=== PATIENT | female | born 2005 | race Caucasian/White ===

== ENCOUNTER 2023-03-15 15:33 | Emergency (ER) | payer OTHER ==
[~2023-03-15] VITALS: Ht 154.9 cm; Wt 50.7 kg
[2023-03-15 15:35] VITALS: O2SAT 100
[2023-03-15] MEDS ORDERED: ONDANSETRON 4MG ORAL DISINTEGRATING TAB PO ONE (15:45)
[2023-03-15] MEDS ORDERED: ONDA4TAB6 PO (16:21)
[2023-03-15 17:33] LABS: APPEARANCE, URINE HAZY (CLEAR); BACTERIA, URINE AUTO 3+ (NEGATIVE); BILIRUBIN, URINE AUTO NEGATIVE (NEGATIVE); BLOOD, URINE BLOOD NEGATIVE (NEGATIVE); COLOR, URINE AMBER (YELLOW); GLUCOSE, URINE (UA) AUTO NEGATIVE (NEGATIVE); KETONE, URINE AUTO 2+ mg/dL (NEGATIVE); LEUKOCYTE ESTERASE, URINE AUTO 2+ (NEGATIVE); MUCUS, URINE LARGE (NEGATIVE); NITRITE, URINE AUTO POSITIVE (NEGATIVE); PROTEIN, URINE AUTO 1+ mg/dL (NEGATIVE); RBC, URINE AUTO 0 /HPF (0-3); SPECIFIC GRAVITY URINE AUTO 1.029 (1.002-1.035); SQUAMOUS EPITHELIAL CELL UR AU 12 /HPF (0-6); WBC, URINE AUTO 65 /HPF (0-3)
[2023-03-15] MEDS ORDERED: NITR1CAP11 PO (17:34)
[2023-03-15 18:02] VITALS: BP 105/70; TEMP 98.1
== END 2023-03-15 18:03 | disposition home or self-care (01) ==
LOC: M ED 15:33
DX: O21.9 Vomiting of pregnancy, unspecified (principal); O23.91 Unspecified genitourinary tract infection in pregnancy, first trimester; Z3A.01 Less than 8 weeks gestation of pregnancy

== ENCOUNTER → 2023-09-03 | Outpatient (CLI) | payer OTHER ==
[~2023-09-03] MED LIST: NITR100C3 PO; ONDA-282 PO
== END ==
LOC: M PLALAB 15:45
PROVIDERS: ATTEND Advanced Practice Midwife
DX: Z34.83 Encounter for supervision of other normal pregnancy, third trimester (principal)

== ENCOUNTER → 2023-10-09 | Outpatient (REF) | payer OTHER | LOC: M PLALAB 08:27 | PROVIDERS: ATTEND Obstetrics & Gynecology | DX: Z36.85 Encounter for antenatal screening for Streptococcus B (principal); Z3A.36 36 weeks gestation of pregnancy ==

== ENCOUNTER 2023-11-12 08:08 | Inpatient (IN) | payer OTHER ==
[2023-11-12] VITALS (37 sets, daily range): BP systolic 88–187; BP diastolic 52–98; O2SAT 99
[~2023-11-12] VITALS: Ht 149.9 cm; Wt 79.5 kg
[2023-11-12] MEDS ORDERED: IRON27TA2 PO (08:21)
[2023-11-12] MEDS ORDERED: PNV1TABL16 PO (08:21)
[2023-11-12] MEDS ORDERED: HOME MED LIST COMPLETE! XX SCH (08:25)
[2023-11-12] MEDS ORDERED: OXYTOCIN DRIP 30 UNITS in IV 1 EA IV PRN (09:00)
[2023-11-12] MEDS ORDERED: TRANEXAMIC ACID INJection 1,000 MG in NS 100 ML IV PRN (09:00)
[2023-11-12] MEDS ORDERED: CARBOPROST TROMETHAMINE 250 MCG/ML AMP IM PRN (09:00)
[2023-11-12] MEDS ORDERED: OXYTOCIN INJ 10UNITS/ML 1ML VIAL IM PRN (09:00)
[2023-11-12 09:11] LABS: HEMATOCRIT 37.8 % (36.0-47.0); MEAN CORPUSCULAR HEMOGLOBIN 31.6 pg (27.0-33.0); MEAN CORPUSCULAR HGB CONC 34.4 g/dl (32.0-36.5); MEAN CORPUSCULAR VOLUME 91.7 fl (80.0-96.0); PLATELET COUNT, AUTOMATED 147 10^3/uL (150-450); RED BLOOD COUNT 4.12 10^6/uL (4.00-5.40); WHITE BLOOD COUNT 10.2 10^3/uL (4.0-10.0)
[2023-11-12 10:14] LABS: HEPATITIS C VIRUS ABY INDEX < 0.02 INDEX (<0.8)
[2023-11-12] MEDS ORDERED: ONDANSETRON 4MG 2ML VIAL IV PRN (11:25)
[2023-11-12] MEDS ORDERED: LR 500 ML IV PRN (11:25)
[2023-11-12] MEDS ORDERED: EPIDURAL/PCA KEYS XX PRN (11:25)
[2023-11-12] MEDS ORDERED: diphenhydrAMINE 50MG/ML VIAL IV PRN (11:25)
[2023-11-12] MEDS ORDERED: NALOXONE INJ 0.4MG/1ML VIAL IV PRN (11:25)
[2023-11-12] MEDS: FENTANYL/ROPIVACAINE/NACL BAG 100 ML EPIDURAL SCH (11:38)
[2023-11-12] MEDS: ePHEDrine SULFATE 25 MG/5 ML(5MG/ML) SYRINGE IVP PRN (12:55)
[2023-11-12] MEDS: OXYTOCIN DRIP 30 UNITS in IV 1 EA IV SCH (14:31)
[2023-11-12] MEDS: METHYLERGONOVINE MALEATE 0.2MG/ML 1ML VIAL IM PRN (20:53)
[2023-11-12] MEDS: LIDOCAINE 1% MDV 20ML VIAL INFIL PRN (20:53)
[2023-11-12] MEDS ORDERED: METHYLERGONOVINE MALEATE 0.2 MG TAB PO PRN (21:30)
[2023-11-12] MEDS: IBUPROFEN 800 MG TAB PO PRN (23:34)
[2023-11-12] MEDS: ACETAMINOPHEN 500 MG TAB PO PRN (23:34)
[2023-11-13 06:00] VITALS: BP 121/66; O2SAT 98
[2023-11-13] MEDS: DOCUSATE SODIUM 100MG CAPSULE PO PRN (06:35)
[2023-11-13] MEDS: DIBUCAINE 1% OINTMENT 30GM TOP PRN (06:35)
[2023-11-13] MEDS: PRENATAL VITAMINS CHEWABLE TABLET PO SCH (08:26)
[2023-11-13] MEDS: RHO(D) IMMUNE GLOBULIN/MALTOSE 500MCG(2500IU)/2.2ML VIAL (WINRHO) IM SCH (18:05)
[2023-11-13 18:27] VITALS: BP 124/72; O2SAT 97
[2023-11-14 06:00] VITALS: BP 125/73; O2SAT 98
[2023-11-14] MEDS: IBUPROFEN 600MG TAB PO PRN (07:40)
[2023-11-14] MEDS: MEASLES,MUMPS,RUBELLA VACCINE INJ (MMR-II) SC.IMMUN ONE (08:02)
[2023-11-14] MEDS: ACETAMINOPHEN TAB 650MG DOSE (2X325MG) PO PRN (13:04)
[2023-11-14] MEDS: FLUZONE VACCINE TRIVALENT PF(2024-25) 0.5ML SYRINGE IM.IMMUN ONE (13:05)
== END 2023-11-14 13:10 | disposition home or self-care (01) | DRG 807 ==
LOC: M LDO 08:08 → M LDI 08:47 → M OBS 22:56
PROVIDERS: ADMIT Advanced Practice Midwife; ATTEND Advanced Practice Midwife
PROC: 10E0XZZ Delivery of Products of Conception, External Approach (ICD-10-PCS; principal; 2023-11-12)
PROC: 0HQ9XZZ Repair Perineum Skin, External Approach (ICD-10-PCS; 2023-11-12)
DX: O48.0 Post-term pregnancy (principal); Z37.0 Single live birth; Z3A.40 40 weeks gestation of pregnancy; O70.0 First degree perineal laceration during delivery